=== PATIENT | male | born 1985 | race Caucasian/White ===

== ENCOUNTER 2019-04-30 10:15 | Emergency (ER) | payer BC ==
[~2019-04-30] VITALS: Ht 182.9 cm; Wt 105.2 kg
[2019-04-30 10:30] VITALS: Ht 182.9 cm; Wt 105.2 kg
[2019-04-30 10:58] LABS: BASOPHIL % 0.1 % (0-2); PLATELET COUNT 323 x10^3mcL (130-400); RED CELL DISTRIBUTION WIDTH 12.4 % (11.5-14.5)
[2019-04-30 11:34] LABS: CARBON DIOXIDE 28 mmol/L (21-32); CHLORIDE SERUM 102 mmol/L (98-107); POTASSIUM SERUM 3.7 mmol/L (3.5-5.1); SODIUM SERUM 140 mmol/L (136-145)
[2019-04-30 11:35] LABS: ALBUMIN 4.3 g/dL (3.4-5.0); BILIRUBIN TOTAL 0.4 mg/dL (0.20-1.00); CALCIUM 9.2 mg/dL (8.5-10.1); CREATININE SERUM 0.9 mg/dL (0.7-1.3); GFR1 > 60 mL/min; GLUCOSE SERUM 83 mg/dL (74-106); TOTAL PROTEIN, SERUM 8.2 g/dL (6.4-8.2)
[2019-04-30 11:36] LABS: ALKALINE PHOSPHATASE 77 U/L (46-116); ALT/SGPT 117 U/L (16-63); AST/SGOT 52 U/L (15-37)
[2019-04-30 13:25] VITALS: BP 142/68
== END 2019-04-30 13:10 | disposition home or self-care (01) ==
LOC: ED 10:15
PROVIDERS: Emergency Medicine
DX: N20.0 Calculus of kidney (principal); J45.909 Unspecified asthma, uncomplicated
CPT/HCPCS: J1885; J7030